=== PATIENT | male | born 1950 | race Caucasian/White ===

== ENCOUNTER 2019-02-25 07:12 | Day surgery (SDC) | payer MEDICARE ==
[2019-02-22 11:22] LABS: BASOPHILS % (AUTO) 0.6 % (0-1); EOSINOPHILS # (AUTO) 0.1 X10'3 (0-0.9); EOSINOPHILS % (AUTO) 1.4 % (0-6); LYMPHOCYTES # (AUTO) 2.1 X10'3 (1.1-4.8); LYMPHOCYTES % (AUTO) 31.9 % (21-51); MEAN CORPUSCULAR HEMOGLOBIN 31.8 PG (27.0-31.0); MEAN CORPUSCULAR HGB CONC 34.4 g/dL (33.0-36.5); MEAN CORPUSCULAR VOLUME 92.6 FL (78-98); MEAN PLATELET VOLUME 8.7 FL (7.4-10.4); MONOCYTES # (AUTO) 0.4 X10'3 (0-0.9); MONOCYTES % (AUTO) 6.2 % (2-12); NEUTROPHILS % (AUTO) 59.9 % (42-75); PRE OP HEMATOCRIT 47.4 % (42.0-52.0); PRE OP HEMOGLOBIN 16.3 g/dL (14.0-17.9); PRE OP PLATELET COUNT 259 X10'3 (140-440); RED BLOOD COUNT 5.11 X10'6 (4.70-6.10); RED CELL DISTRIBUTION WIDTH 12.7 % (11.5-14.5)
[2019-02-22 11:31] LABS: PRE OP PROTIME 10.9 SECONDS (9.0-12.0)
[2019-02-22 11:33] LABS: ALBUMIN 4.2 G/DL (3.4-5.0); ALBUMIN/GLOBULIN RATIO 1.2 (1.1-1.5); ALKALINE PHOSPHATASE 45 IU/L (46-116); BLOOD UREA NITROGEN 15 MG/DL (7-18); BUN/CREATININE RATIO 13.2 (5.4-32.0); CALCIUM 9.1 MG/DL (8.5-10.1); CHLORIDE 106 MMOL/L (99-107); CREATININE 1.14 MG/DL (0.60-1.10); PRE OP ALT 36 U/L (30-65); PRE OP ANION GAP 8 (8-16); PRE OP AST 27 U/L (10-37); PRE OP BILIRUB, TOTAL 0.6 MG/DL (0.0-1.0); PRE OP GLUCOSE 104 MG/DL (70-104); PRE OP POTASSIUM 4.1 MMOL/L (3.4-5.1); PRE OP SODIUM 142 MMOL/L (135-145); TOTAL CARBON DIOXIDE 28.4 MMOL/L (24-32); TOTAL PROTEIN 7.7 G/DL (6.4-8.2); eGFR 64 ML/MIN
[~2019-02-25] VITALS: Ht 180.3 cm; Wt 99.8 kg
[2019-02-25] VITALS (18 sets, daily range): BP systolic 102–151; BP diastolic 58–80
[~2019-02-25 07:12] MED LIST: ASCO500C15 PO; ASPI81TA30 PO; CHOL10002 PO; DILT180C90 PO; DOXA8TAB79 PO; FINA5TAB11 PO; LORA-641 PO; MULT-933 PO; OMEG-182 PO; RED600TA PO; SENN-93 PO; [UNRECOGNIZED DRUG - OTHER] PO
[2019-02-25] MEDS ORDERED: famotidine 20mg tablet PO ONE (07:15)
[2019-02-25] MEDS ORDERED: cefazolin/dext.iso 2gm/50ml 50 ML IV ONE (07:15)
[2019-02-25] MEDS ORDERED: ringers solution, lacted 1,000 ML IV SCH ×2 (07:15→08:23)
[2019-02-25] MEDS ORDERED: hydrALAZINE 20mg/ml inj. IV PRN (08:25)
[2019-02-25] MEDS ORDERED: ondansetron/PF 4mg/2ml inj IV PRN ×2 (08:25→10:15)
[2019-02-25] MEDS ORDERED: labetalol 20mg/4ml (5mg/ml) syringe IV PRN (08:25)
[2019-02-25] MEDS ORDERED: morphine 4 MG/ML inj SYRINge IV PRN ×2 (08:25)
[2019-02-25] MEDS ORDERED: fentaNYL/PF 50MCG/1 ML 2ML syringe IV PRN ×2 (08:25)
[2019-02-25] MEDS ORDERED: MIDAZolam 5mg/5ml vial ONE (09:05)
[2019-02-25] MEDS ORDERED: fentaNYL/PF 50MCG/1 ML 2ML syringe ONE (09:05)
[2019-02-25] MEDS ORDERED: LIDOcaine 1%/PF 5ML 10 MG/ML VIAL ONE (09:11)
[2019-02-25] MEDS ORDERED: propofol 10mg/ml 20ml vial IV ONE (09:11)
--- NOTE | 2019-02-25 10:10 | NUR ---
Received from OR via BED, accompanied by Anesthesiologist DR XIAO--- and report given by Anesthesiolgist. PATIENT A&OX4, DENIES PAIN, V/S WNL, NEUROVASCULAR CHECKS INTACT, 20G PIV LUE, SCD ON, 3 WAY CONTINOUS BLADDER IRRIGATION DRAINING LIGHT PINK CLEAR COLORED URINE IN F/C BAG
[2019-02-25] MEDS ORDERED: zolpidem 5mg tablet PO PRN (10:15)
[2019-02-25] MEDS ORDERED: oxybutynin 5mg tablet PO PRN (10:15)
[2019-02-25] MEDS ORDERED: proCHLORperazine 10 MG/2 ml inj IV PRN (10:15)
[2019-02-25] MEDS ORDERED: HYDROcodone/acetaminophen 10/325mg tab PO PRN (10:15)
[2019-02-25] MEDS ORDERED: mag hydrox/Alum hydrox/simeth 30ml oral suspension PO PRN (10:15)
[2019-02-25] MEDS ORDERED: opium/belladonna alkaloids No. 15A 30mg rectal suppository RC PRN (10:15)
[2019-02-25] MEDS ORDERED: loratadine 10mg tablet PO PRN (10:15)
[2019-02-25] MEDS ORDERED: acetaminophen 325mg tablet PO PRN (10:15)
--- NOTE | 2019-02-25 11:20 | NUR ---
CALL LIGHT GIVEN TO PATIENT AND CALL LIGHT TURNED ON FOR AIRCRAFT ENGINE MECHANIC SUPERVISOR TO ANSWER AND GREET PATIENT
--- NOTE | 2019-02-25 11:20 | NUR ---
PATIENT A&OX4, DENIES PAIN, V/S WNL, NEUROVASCULAR CHECKS INTACT, 20G PIV LUE, SCD ON, 3 WAY CONTINOUS BLADDER IRRIGATION DRAINING LIGHT PINK CLEAR COLORED URINE IN F/C BAG. PATIENT TAKEN TO SURGICAL WITH ALL BELONGINGS AND HOOKED UP TO MONITORS IN ROOM AND REPORT GIVEN TO BATCH UNLOADER WHO HAS TAKEN OVER PATIENT CARE.
[2019-02-25] MEDS: potassium cl 20mEq in 1/2 NS 1,000 ML IV SCH ×3 (12:30→20:50)
[2019-02-25] MEDS: ceFAZolin 1GM/D5W- ADD-VANTAGE 50 ML IV SCH (16:56)
--- NOTE | 2019-02-25 17:56 | NUR ---
Problems reprioritized. Patient report given, questions answered & plan of care reviewed with CHLESEY WHITFIELD.
--- NOTE | 2019-02-25 18:10 | NUR ---
Patient in room [facility]. I have received report from ROSEANN Chaidez and had the opportunity to ask questions and assume patient care.
[2019-02-25] MEDS: docusate sod 100mg capsule PO SCH (19:23)
[2019-02-25] MEDS ORDERED: doxazosin mesylate 2mg tablet PO SCH (21:00)
[2019-02-25] MEDS ORDERED: diltiazem CD 180mg cap (once-daily) PO SCH (21:00)
[2019-02-26] VITALS: BP 139/77
[2019-02-26] MEDS: ceFAZolin 1GM/D5W- ADD-VANTAGE 50 ML IV SCH ×2 (00:18→07:56)
[2019-02-26] MEDS: potassium cl 20mEq in 1/2 NS 1,000 ML IV SCH (04:51)
[2019-02-26 06:23] LABS: BASOPHILS % (AUTO) 0.3 % (0-1); EOSINOPHILS # (AUTO) 0.3 X10'3 (0-0.9); EOSINOPHILS % (AUTO) 2.8 % (0-6); HEMATOCRIT 43.9 % (42.0-52.0); HEMOGLOBIN 15.3 g/dl (14.0-17.9); LYMPHOCYTES # (AUTO) 2.6 X10'3 (1.1-4.8); LYMPHOCYTES % (AUTO) 22.7 % (21-51); MEAN CORPUSCULAR HEMOGLOBIN 32.6 PG (27.0-31.0); MEAN CORPUSCULAR HGB CONC 34.8 g/dL (33.0-36.5); MEAN CORPUSCULAR VOLUME 93.7 FL (78-98); MONOCYTES # (AUTO) 0.9 X10'3 (0-0.9); MONOCYTES % (AUTO) 7.5 % (2-12); NEUTROPHILS # (AUTO) 7.7 X10'3 (1.8-7.7); NEUTROPHILS % (AUTO) 66.7 % (42-75); PLATELET COUNT 214 X10'3 (140-440); RED BLOOD COUNT 4.69 X10'6 (4.70-6.10); WHITE BLOOD COUNT 11.5 X10'3 (4.5-11.0)
--- NOTE | 2019-02-26 06:41 | NUR ---
Problems reprioritized. Patient report given, questions answered & plan of care reviewed with ROSEANN Alcantara and ROSEANN Rinaldi.
[2019-02-26 07:02] LABS: ALBUMIN 3.5 G/DL (3.4-5.0); ANION GAP 11 (8-16); BLOOD UREA NITROGEN 13 MG/DL (7-18); CALCIUM 8.3 MG/DL (8.5-10.1); CHLORIDE 109 MMOL/L (99-107); GLUCOSE 79 MG/DL (70-104); POTASSIUM 4.1 MMOL/L (3.5-5.1); SODIUM 143 MMOL/L (135-145); TOTAL CARBON DIOXIDE 23.5 MMOL/L (24-32); eGFR 75 ML/MIN
[2019-02-26] MEDS ORDERED: pantoprazole 40mg Tablet.DR PO SCH ×2 (07:30→09:30)
[2019-02-26] MEDS: docusate sod 100mg capsule PO SCH (07:56)
[2019-02-26] MEDS ORDERED: finasteride 5mg tablet PO SCH (08:00)
[2019-02-26] MEDS ORDERED: DOCU-148 PO (09:06)
--- NOTE | 2019-02-26 11:49 | NUR ---
Patient discharged home with , went home with all belongings, educated on coyle catheter care and bag changes, newsmeds and infection control measures when doing coyle catheter care. Patient stable and appropriate for discharge. Patient was taken by wheel chair to awaiting car. IV taken out, urine in bag yellow in color, patient will follow up with Dr. Mariscal
[2019-02-27] MEDS ORDERED: pantoprazole 40mg Tablet.DR PO SCH (07:30)
== END 2019-02-26 11:50 | disposition home or self-care (01) ==
LOC: PAS 07:12 → SUR 3N 12:00 → PAS 02-26 11:50
PROVIDERS: ATTEND Urology
DX: N40.1 Benign prostatic hyperplasia with lower urinary tract symptoms (principal); N13.8 Other obstructive and reflux uropathy; N32.89 Other specified disorders of bladder; I10 Essential (primary) hypertension; Z79.82 Long term (current) use of aspirin; Z79.899 Other long term (current) drug therapy; Z98.890 Other specified postprocedural states
CPT/HCPCS: 36415; 52601; 80048; 80053; 82948; 85025; 85610; 85730; 86885; 86900; 86901; 87081; 93005; J0690; J2250; J3010; 88305; A4346; A4355; G0378; J2704; J3480; J7060; J7120

== ENCOUNTER 2019-11-09 06:04 | Day surgery (SDC) | payer MEDICARE ==
[2019-11-02 12:45] LABS: CLARITY,URINE CLEAR (Clear); COLOR,URINE YELLOW (Yellow); GLUCOSE, URINE NEGATIVE (Neg); KETONES,URINE NEGATIVE (Neg); LEUKOCYTE ESTERASE ,URINE NEGATIVE (Neg); NITRITES, URINE NEGATIVE (Neg); OCCULT BLOOD,URINE NEGATIVE (Neg); PH,URINE 5.5 (4.8-8.0); PROTEIN,URINE NEGATIVE (Neg); UROBILINOGEN,URINE 0.2 E.U/dL (0.2-1.0)
[2019-11-02 12:49] LABS: BASOPHILS # (AUTO) 0.1 X10'3 (0-0.2); BASOPHILS % (AUTO) 0.6 % (0-1); EOSINOPHILS # (AUTO) 0.1 X10'3 (0-0.9); EOSINOPHILS % (AUTO) 0.8 % (0-6); LYMPHOCYTES # (AUTO) 2.3 X10'3 (1.1-4.8); LYMPHOCYTES % (AUTO) 23.8 % (21-51); MEAN CORPUSCULAR HEMOGLOBIN 31.9 PG (27.0-31.0); MEAN CORPUSCULAR HGB CONC 34.2 g/dL (33.0-36.5); MEAN CORPUSCULAR VOLUME 93.4 FL (78-98); MEAN PLATELET VOLUME 9.1 FL (7.4-10.4); MONOCYTES # (AUTO) 0.8 X10'3 (0-0.9); MONOCYTES % (AUTO) 7.9 % (2-12); NEUTROPHILS # (AUTO) 6.3 X10'3 (1.8-7.7); NEUTROPHILS % (AUTO) 66.9 % (42-75); PRE OP HEMATOCRIT 47.9 % (42.0-52.0); PRE OP HEMOGLOBIN 16.4 g/dL (14.0-17.9); PRE OP PLATELET COUNT 238 X10'3 (140-440); RED BLOOD COUNT 5.13 X10'6 (4.70-6.10); RED CELL DISTRIBUTION WIDTH 12.8 % (11.5-14.5)
[2019-11-02 12:58] LABS: UA COLLECTION TYPE VOIDED
[2019-11-02 13:08] LABS: ALBUMIN 4.1 G/DL (3.4-5.0); ALBUMIN/GLOBULIN RATIO 1.2 (1.1-1.5); ALKALINE PHOSPHATASE 49 IU/L (46-116); BLOOD UREA NITROGEN 16 MG/DL (7-18); BUN/CREATININE RATIO 12.2 (5.4-32.0); CALCIUM 9.1 MG/DL (8.5-10.1); CHLORIDE 108 MMOL/L (99-107); CREATININE 1.31 MG/DL (0.60-1.10); PRE OP ALT 30 U/L (30-65); PRE OP ANION GAP 9 (8-16); PRE OP AST 29 U/L (10-37); PRE OP BILIRUB, TOTAL 0.5 MG/DL (0.0-1.0); PRE OP GLUCOSE 108 MG/DL (70-104); PRE OP POTASSIUM 4.2 MMOL/L (3.4-5.1); PRE OP SODIUM 144 MMOL/L (135-145); TOTAL CARBON DIOXIDE 27.2 MMOL/L (24-32); TOTAL PROTEIN 7.5 G/DL (6.4-8.2); eGFR 54 ML/MIN
[~2019-11-09] VITALS: Ht 180.3 cm; Wt 99.8 kg
[2019-11-09] VITALS (10 sets, daily range): BP systolic 129–160; BP diastolic 65–96
[~2019-11-09 06:04] MED LIST changes: -ASPI81TA30 PO; +ASPI81TA52 PO; +ERGO400C PO; -FINA5TAB11 PO; +MAGN200T8 PO; -MULT-933 PO; +OMEG-133 PO; -OMEG-182 PO; +OSC500T PO; +cefazolin/dext.iso 2gm/50ml 50 ML IV ONE; +famotidine 20mg tablet PO ONE; +ringers solution, lacted 1,000 ML IV SCH
[2019-11-09] MEDS ORDERED: LIDOcaine 1% (10mg/ml) 2ml vial ONE (06:26)
[2019-11-09] MEDS ORDERED: BUPIVAcaine/PF 2.5mg/ml (0.25%) 10ml vial ONE (06:44)
[2019-11-09] MEDS ORDERED: glycopyrrolate 0.2mg/ml inj ONE (08:03)
[2019-11-09] MEDS ORDERED: sevoflurane 250ml liquid IH ONE (08:03)
[2019-11-09] MEDS ORDERED: rocuronium 10mg/ml inj IV ONE (08:03)
[2019-11-09] MEDS ORDERED: neostigmine methylsulfate 1 MG/ML 10ml vial ONE (08:03)
[2019-11-09] MEDS ORDERED: fentaNYL/PF 50MCG/1 ML 2ML syringe ONE (08:04)
[2019-11-09] MEDS ORDERED: midazolam 2 mg/2 ml injection ONE (08:04)
[2019-11-09] MEDS ORDERED: dexamethasone sod phosphate 4mg/ml inj. ONE (08:06)
[2019-11-09] MEDS ORDERED: LIDOcaine 2% (20mg/ml) 5ml vial ONE (08:06)
[2019-11-09] MEDS ORDERED: propofol inj 20 ML IV ONE (08:06)
[2019-11-09] MEDS ORDERED: ondansetron/PF 4mg/2ml inj ONE (08:20)
[2019-11-09] MEDS ORDERED: ondansetron/PF 4mg/2ml inj IV PRN (08:30)
[2019-11-09] MEDS ORDERED: morphine 2 MG/ML inj. syringe IV PRN (08:30)
[2019-11-09] MEDS ORDERED: proCHLORperazine 10 MG/2 ml inj IV PRN (08:30)
[2019-11-09] MEDS ORDERED: ringers solution, lacted 1,000 ML IV SCH (08:30)
[2019-11-09] MEDS ORDERED: meperidine/PF 25mg/ml syringe IV PRN ×3 (08:30)
[2019-11-09] MEDS ORDERED: morphine 4 MG/ML inj SYRINge IV PRN (08:30)
[2019-11-09] MEDS ORDERED: meperidine/PF 25mg/ml syringe ONE (08:47)
[2019-11-09] MEDS ORDERED: acetaminophen 1,000mg/100ml IV 100 ML IV ONE (08:57)
--- NOTE | 2019-11-09 09:15 | NUR ---
Received from OR via BED , accompanied by Anesthesiologist DR HURD and report given by Anesthesiolgist. PATIENT WAKING UP, DENIES PAIN, V/S WNL, NEUROVASCULAR CHECKS INTACT, 20G PIV RUE, SCD ON, 2 BANDAIDS TO LAP SIGHTS OF ABDOMEN CDI.
[2019-11-09] MEDS ORDERED: HYDROcodone/acetaminophen 10/325mg tab PO ONE (09:50)
--- NOTE | 2019-11-09 10:35 | NUR ---
PATIENT A&OX4, DENIES PAIN, V/S WNL, NEUROVASCULAR CHECKS INTACT, 20G PIV D/C, SCD OFF, BANDAIDS TO LAP SIGHTS OF ABDOMEN CDI. PATIENT HAS VOIDED 300+CC. I HAVE REVIEWED D/C INSTRUCTIONS WITH PATIENT AND FAMILY HAVE VERBALIZED UNDERSTANDING.PATIENT WAS D/C HOME WITH ALL BELONGINGS AND FAMILY GAVE TRANSPORT HOME.
== END 2019-11-09 10:35 | disposition home or self-care (01) ==
LOC: PAS 06:04
PROVIDERS: ATTEND Surgery
DX: K40.90 Unilateral inguinal hernia, without obstruction or gangrene, not specified as recurrent (principal); D17.6 Benign lipomatous neoplasm of spermatic cord; I10 Essential (primary) hypertension; N40.0 Benign prostatic hyperplasia without lower urinary tract symptoms; F41.9 Anxiety disorder, unspecified; M19.90 Unspecified osteoarthritis, unspecified site; Z86.14 Personal history of Methicillin resistant Staphylococcus aureus infection; Z79.899 Other long term (current) drug therapy; Z98.890 Other specified postprocedural states; Z87.891 Personal history of nicotine dependence; Z11.59 Encounter for screening for other viral diseases; Z72.89 Other problems related to lifestyle; Z85.828 Personal history of other malignant neoplasm of skin; Z80.1 Family history of malignant neoplasm of trachea, bronchus and lung
CPT/HCPCS: 36415; 49650; 80053; 81003; 82948; 85025; 93005; C1781; J0131; J1100; J2001; J2175; J2250; J2405; J2704; J2710; J3010; J3490; J7120; U0003; A4215; A4314; A4618; A6258